=== PATIENT | male | born 1995 | race Caucasian/White ===

== ENCOUNTER → 2017-06-21 | Outpatient (CLI) | payer OTHER ==
--- NOTE | 2017-06-21 15:58 | RAD ---
Left foot, 3 views, 06/21/2017: HISTORY: Foot pain and swelling No fracture or dislocation is identified. No significant arthritic change is seen. There is mild subcutaneous edema. IMPRESSION: No acute bony abnormality is detected. Electronically signed by: Laci Roca MD (06/21/2017 3:55 PM) [facility]
== END | disposition home or self-care (01) ==
LOC: DXRAD 14:21
PROVIDERS: ATTEND Podiatrist
DX: M79.672 Pain in left foot (principal)
CPT/HCPCS: 73630